=== PATIENT | female | born 1985 | race Caucasian/White ===

== ENCOUNTER 2017-01-13 09:46 | Emergency (ER) | payer OTHER ==
[2017-01-13 09:54] VITALS: RESP 18; O2SAT 96
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
[2017-01-13 11:43] VITALS: BP 100/69; PULSE 66; TEMP 98.2
== END 2017-01-13 11:57 | disposition home or self-care (01) ==
DX: S39.012A Strain of muscle, fascia and tendon of lower back, initial encounter (principal); S16.1XXA Strain of muscle, fascia and tendon at neck level, initial encounter; V49.49XA Driver injured in collision with other motor vehicles in traffic accident, initial encounter; Y92.410 Unspecified street and highway as the place of occurrence of the external cause; Y99.8 Other external cause status; Y93.89 Activity, other specified